=== PATIENT | male | born 2000 | race Hispanic/Latino ===

== ENCOUNTER 2019-10-22 19:10 | Emergency (ER) | payer BC ==
[2019-10-22] MEDS ORDERED: NA CHLORIDE 0.9% 1,000 ML ONE (20:47)
[2019-10-22 21:52] LABS: Absolute Lymphocytes (CBC) 2.1 K/uL (0.7-4.9); Basophils % 0.8 % (0-1.3); Hematocrit 42.6 % (39.6-49.0); MPV 9.1 fL (7.6-11.3); RBC Red Blood Cell Count 4.83 M/uL (4.33-5.43)
[2019-10-22 21:54] LABS: Protime INR 1.11
[2019-10-22 22:05] LABS: ALT/SGPT 14 U/L (12-78); AST/SGOT 10 U/L (15-37); Albumin 3.7 g/dL (3.4-5.0); Alkaline Phosphatase 47 U/L (45-117); BUN Blood Urea Nitrogen 18 mg/dL (7-18); Bicarbonate 23 mmol/L (21-32); Bilirubin Direct 0.2 mg/dL (0-0.2); Bilirubin Total 1.2 mg/dL (0.2-1.0); Glucose Level 76 mg/dL (74-106); Potassium 3.6 mmol/L (3.5-5.1); Protein, Total 6.9 g/dL (6.4-8.2); Sodium Level 144 mmol/L (136-145)
[2019-10-22 22:26] LABS: Barbiturates NEGATIVE (NEGATIVE); Benzodiazepines POSITIVE (NEGATIVE); Cocaine NEGATIVE (NEGATIVE); METHAMPHETAM NEGATIVE (NEGATIVE); Methadone NEGATIVE (NEGATIVE); Opiates NEGATIVE (NEGATIVE); Phencyclidine NEGATIVE (NEGATIVE); THC Cannibis POSITIVE (NEGATIVE)
--- NOTE | 2019-10-23 10:28 | ER ---
Nurse's Notes [facility] Name: Weston Auguste Jr Age: 19 yrs Sex: Male : 2000 Arrival Date: 10/22/2019 Time: 19:18 Bed 4 Private MD: Diagnosis: Adverse effect of benzodiazepines-abuse Presentation: 10/21 19:35 Chief complaint: Parent and/or Guardian states: Noticed a change a few days ago on ca1 Father's day, a few symptoms of Xanax Usage. He's done this before, this is his 4th time. He's kind of avoiding me for the past few days and denying it. Am assuming he took 10 tabs of Xanax today. He says 2 last night and none this morning or today. He's been drowsy, stumbling and can't remember conversation that we have, a little aggression, slurred speech. Chief complaint: Patient states: "No I don't want to hurt myself, I take them because I just like to have fun with them". Coronavirus screen: Proceed with normal triage. Patient denies a cough. Patient denies shortness of breath or difficulty breathing. Patient denies measured and/or subjective temperature greater than 100.4F prior to today's visit. Patient denies travel on a cruise ship or to a country the [facility] currently lists as an affected area. Patient denies contact with known and/or suspected case of COVID-19. Ebola Screen: Patient negative for fever greater than or equal to 101.5 degrees Fahrenheit, and additional compatible Ebola Virus Disease symptoms Patient denies exposure to infectious person. Patient denies travel to an Ebola-affected area in the 21 days before illness onset. No symptoms or risks identified at this time. Initial Sepsis Screen: Does the patient meet any 2 criteria? No. Patient's initial sepsis screen is negative. Does the patient have a suspected source of infection? No. Patient's initial sepsis screen is negative. Risk Assessment: Do you want to hurt yourself or someone else? Patient reports no desire to harm self or others. Onset of symptoms was October 22, 2019. 19:35 Method Of Arrival: Ambulatory ca1 19:35 Acuity: JUWAN 3 ca1 Historical: - Allergies: 19:42 No Known Allergies; ca1 - Home Meds: 19:42 None [Active]; ca1 - PMHx: 19:42 Heart Murmur; ca1 - PSHx: 19:42 None; ca1 - Immunization history:: Adult Immunizations up to date. - Social history:: Smoking status: Reported history of juuling and/or vaping. Patient uses street drugs, marijuana, promethazine and Codeine, Patient/guardian denies using alcohol. - Family history:: not pertinent. Screenin:44 Abuse screen: Denies threats or abuse. Denies injuries from another. Nutritional mg2 screening: No deficits noted. Tuberculosis screening: No symptoms or risk factors identified. Fall Risk IV access (20 points). Assessment: 19:45 General: Appears in no apparent distress. comfortable, Behavior is calm, cooperative, jb4 appropriate for age. Pain: Denies pain. Neuro: Level of Consciousness is awake, alert, obeys commands, Oriented to person, place, time, situation. Cardiovascular: Patient's skin is warm and dry. Respiratory: Airway is patent Respiratory effort is even, unlabored, Respiratory pattern is regular, symmetrical. GI: No signs and/or symptoms were reported involving the gastrointestinal system. : No signs and/or symptoms were reported regarding the genitourinary system. EENT: No signs and/or symptoms were reported regarding the EENT system. Derm: Skin is intact, Skin is pink, warm \\T\\ dry. Musculoskeletal: Circulation, motion, and sensation intact. Range of motion: intact in all extremities. 21:02 Reassessment: Patient appears in no apparent distress at this time. Patient and/or jb4 family updated on plan of care and expected duration. Pain level reassessed. Patient is alert, oriented x 3, equal unlabored respirations, skin warm/dry/pink. 22:00 Reassessment: Patient appears in no apparent distress at this time. Patient and/or jb4 family updated on plan of care and expected duration. Pain level reassessed. Patient is alert, oriented x 3, equal unlabored respirations, skin warm/dry/pink. Vital Signs: 19:35 BP 113 / 58; Pulse 85; Resp 16 S; Temp 97(TE); Pulse Ox 99% on R/A; Weight 79.38 kg ca1 (R); Height 6 ft. 2 in. (187.96 cm) (R); 20:45 BP 144 / 87; Pulse 72; Resp 16; Pulse Ox 100% on R/A; jb4 22:44 BP 135 / 78; Pulse 71; Resp 18; Temp 98; Pulse Ox 100% on R/A; mg2 19:35 Body Mass Index 22.47 (79.38 kg, 187.96 cm) ca1 ED Course: 19:18 Patient arrived in ED. ag3 19:41 Triage completed. ca1 19:42 Arm band placed on right wrist. ca1 19:50 Isaias Lindsey, RN is Primary Nurse. jb4 19:51 Thomas Vaca MD is Attending Physician. idalia 22:20 Bethel Murrell MD is Referral Physician. idalia 22:44 Patient has correct armband on for positive identification. mg2 22:44 No provider procedures requiring assistance completed. IV discontinued, intact, mg2 bleeding controlled, No redness/swelling at site. Pressure dressing applied. Administered Medications: 20:40 Drug: NS 0.9% 1000 ml Route: IV; Rate: 1 bolus; Site: right antecubital; [facility] 22:22 Follow up: Response: No adverse reaction; IV Status: Completed infusion; IV Intake: mg2 1000ml Intake: 22:22 IV: 1000ml; Total: 1000ml. mg2 Outcome: 22:20 Discharge ordered by . [facility] 22:44 Discharged to home ambulatory, with family. mg2 22:44 Condition: stable 22:44 Discharge instructions given to patient, family, Instructed on discharge instructions, follow up and referral plans. Demonstrated understanding of instructions, follow-up care. 22:45 Patient left the ED. mg2 Signatures: Thomas Vaca MD MD cha Bryson, James, RN RN jb4 Scotty Stevenson RN RN mg2 Ara Jenkins ag3 Leticia Farr RN RN ca1
--- NOTE | 2019-10-23 10:28 | EDPHYS ---
Physician Documentation [facility] Name: Weston Auguste Jr Age: 19 yrs Sex: Male : 2000 Arrival Date: 10/22/2019 Time: 19:18 Bed 4 Private MD: ED Physician Thomas Vaca HPI: 10/21 20:17 This 19 yrs old Male presents to ER via Ambulatory with complaints of Overdose.idalia 20:17 The patient presents to the emergency department after a known overdose, that was idalia intentional, a result of recreational substance abuse. Context: Method: the patient has a confirmed or suspected ingestion, Extent: mild ingestion, the OD/poisoning occurred at at home. Associated signs and symptoms: Pertinent positives: slow to respond. Severity of symptoms: At their worst the symptoms were mild in the emergency department the symptoms are unchanged. The patient has experienced similar episodes in the past, multiple times. Historical: - Allergies: 19:42 No Known Allergies; ca1 - Home Meds: 19:42 None [Active]; ca1 - PMHx: 19:42 Heart Murmur; ca1 - PSHx: 19:42 None; ca1 - Immunization history:: Adult Immunizations up to date. - Social history:: Smoking status: Reported history of juuling and/or vaping. Patient uses street drugs, marijuana, promethazine and Codeine, Patient/guardian denies using alcohol. - Family history:: not pertinent. ROS: 20:17 Constitutional: Negative for fever, chills, and weight loss, Eyes: Negative for injury, idalia pain, redness, and discharge, ENT: Negative for injury, pain, and discharge, Neck: Negative for injury, pain, and swelling, Cardiovascular: Negative for chest pain, palpitations, and edema, Respiratory: Negative for shortness of breath, cough, wheezing, and pleuritic chest pain, Abdomen/GI: Negative for abdominal pain, nausea, vomiting, diarrhea, and constipation, Back: Negative for injury and pain, : Negative for injury, bleeding, discharge, and swelling, MS/Extremity: Negative for injury and deformity, Skin: Negative for injury, rash, and discoloration, Neuro: Negative for headache, weakness, numbness, tingling, and seizure, Allergy/Immunology: Negative for hives, rash, and allergies, Endocrine: Negative for neck swelling, polydipsia, polyuria, polyphagia, and marked weight changes, Hematologic/Lymphatic: Negative for swollen nodes, abnormal bleeding, and unusual bruising. 20:17 Psych: Positive for drug abuse. Exam: 20:20 Constitutional: This is a well developed, well nourished patient who is awake, alert, idalia and in no acute distress. Head/Face: Normocephalic, atraumatic. Eyes: Pupils equal round and reactive to light, extra-ocular motions intact. Lids and lashes normal. Conjunctiva and sclera are non-icteric and not injected. Cornea within normal limits. Periorbital areas with no swelling, redness, or edema. ENT: Nares patent. No nasal discharge, no septal abnormalities noted. Tympanic membranes are normal and external auditory canals are clear. Oropharynx with no redness, swelling, or masses, exudates, or evidence of obstruction, uvula midline. Mucous membranes moist. Neck: Trachea midline, no thyromegaly or masses palpated, and no cervical lymphadenopathy. Supple, full range of motion without nuchal rigidity, or vertebral point tenderness. No Meningismus. Chest/axilla: Normal chest wall appearance and motion. Nontender with no deformity. No lesions are appreciated. Cardiovascular: Regular rate and rhythm with a normal S1 and S2. No gallops, murmurs, or rubs. Normal PMI, no JVD. No pulse deficits. Respiratory: Lungs have equal breath sounds bilaterally, clear to auscultation and percussion. No rales, rhonchi or wheezes noted. No increased work of breathing, no retractions or nasal flaring. Abdomen/GI: Soft, non-tender, with normal bowel sounds. No distension or tympany. No guarding or rebound. No evidence of tenderness throughout. Back: No spinal tenderness. No costovertebral tenderness. Full range of motion. Skin: Warm, dry with normal turgor. Normal color with no rashes, no lesions, and no evidence of cellulitis. MS/ Extremity: Pulses equal, no cyanosis. Neurovascular intact. Full, normal range of motion. Neuro: Awake and alert, GCS 15, oriented to person, place, time, and situation. Cranial nerves II-XII grossly intact. Motor strength 5/5 in all extremities. Sensory grossly intact. Cerebellar exam normal. Normal gait. Psych: Awake, alert, with orientation to person, place and time. Behavior, mood, and affect are within normal limits. 22:18 ECG was reviewed by the Attending Physician. [facility] Vital Signs: 19:35 BP 113 / 58; Pulse 85; Resp 16 S; Temp 97(TE); Pulse Ox 99% on R/A; Weight 79.38 kg ca1 (R); Height 6 ft. 2 in. (187.96 cm) (R); 20:45 BP 144 / 87; Pulse 72; Resp 16; Pulse Ox 100% on R/A; jb4 22:44 BP 135 / 78; Pulse 71; Resp 18; Temp 98; Pulse Ox 100% on R/A; mg2 19:35 Body Mass Index 22.47 (79.38 kg, 187.96 cm) ca1 MDM: 19:51 Patient medically screened. [facility] 20:20 Data reviewed: vital signs, nurses notes, lab test result(s), EKG. [facility] 20:22 Differential diagnosis: polypharmacy, over medication. Data interpreted: Cardiac idalia monitor: rate is 85 beats/min, Pulse oximetry: on room air is 99 %. Test interpretation: by ED physician or midlevel provider: ECG. Counseling: I had a detailed discussion with the patient and/or guardian regarding: the historical points, exam findings, and any diagnostic results supporting the discharge/admit diagnosis, lab results, radiology results, the need for outpatient follow up, for definitive care, ED course: pt medically cleared, will follow up , and refain from abusing drugs. 21:19 ED course: pt gcs 15, not suicidal, not homicidal. [facility] 10/21 19:52 Order name: EKG - Nurse/Tech; Complete Time: 21:25 [facility] 10/21 19:52 Order name: IV Saline Lock; Complete Time: 20:47 [facility] 10/21 19:52 Order name: Labs collected and sent; Complete Time: 20:47 [facility] 10/21 19:52 Order name: Urine Dipstick-Ancillary (obtain specimen); Complete Time: 21:40 [facility] EC:18 Rate is 55 beats/min. Rhythm is regular. QRS [place] is Normal. CO interval is normal. QRS [place] interval is normal. QT interval is normal. No Q waves. T waves are Normal. No ST changes noted. Clinical impression: Sinus bradycardia. Interpreted by me. Reviewed by me. Administered Medications: 20:40 Drug: NS 0.9% 1000 ml Route: IV; Rate: 1 bolus; Site: right antecubital; jb4 22:22 Follow up: Response: No adverse reaction; IV Status: Completed infusion; IV Intake: mg2 1000ml Disposition: 10/22/19 22:20 Discharged to Home. Impression: Adverse effect of benzodiazepines - abuse. - Condition is Stable. - Discharge Instructions: Substance Use Disorder, Benzodiazepine Overdose. - Medication Reconciliation Form, Thank You Letter, Antibiotic Education, Prescription Opioid Use form. - Follow up: Private Physician; When: 2 - 3 days; Reason: Recheck today's complaints, Continuance of care, Re-evaluation by your physician. Follow up: Bethel Murrell; When: 2 - 3 days; Reason: Recheck today's complaints, Re-evaluation by your physician. - Problem is new. - Symptoms have improved. Signatures: Thomas Vaca MD MD cha Bryson, James, RN RN jb4 Scotty Stevenson RN RN [facility] Leticia Farr RN RN ca1 Corrections: (The following items were deleted from the chart) 22:45 22:20 10/22/2019 22:20 Discharged to Home. Impression: Adverse effect of mg2 benzodiazepines - abuse. Condition is Stable. Discharge Instructions: Substance Use Disorder, Benzodiazepine Overdose. Forms are Medication Reconciliation Form, Thank You Letter, Antibiotic Education, Prescription Opioid Use. Follow up: Private Physician; When: 2 - 3 days; Reason: Recheck today's complaints, Continuance of care, Re-evaluation by your physician. Follow up: Bethel Murrell; When: 2 - 3 days; Reason: Recheck today's complaints, Re-evaluation by your physician. Problem is new. Symptoms have improved. idalia
--- NOTE | 2019-10-23 12:23 | EKG ---
Test Date: 2019-10-22 Test Time: 22:12:15 Nail Setter: HUNG MEASUREMENT RESULTS: Intervals: Rate: 55 WI: 162 QRSD: 92 QT: 390 QTc: 373 [place]: P: 4 WI: 162 QRS: 71 T: 35 INTERPRETIVE STATEMENTS: Sinus bradycardia Otherwise normal ECG Compared to ECG 06/23/2006 13:37:10 Sinus rhythm no longer present Electronically Signed On 10-23-19 12:22:18 CDT by Juan Eckert
[2019-10-23 12:39] VITALS: O2SAT 100
[2019-10-23 12:40] VITALS: BP 135/78; TEMP 98
== END 2019-10-22 22:45 | disposition home or self-care (01) ==
LOC: ER 19:10
DX: T42.4X1A Poisoning by benzodiazepines, accidental (unintentional), initial encounter (principal); T42.4X5A Adverse effect of benzodiazepines, initial encounter; Z72.0 Tobacco use
CPT/HCPCS: 96361; 93005; 85025; 80048; 36415; 80320; 80329 ×2; 85610; 80076; 80307 ×8; 85730; 96360; 99283; J7030